=== PATIENT | male | born 1970 | race Caucasian/White ===

== ENCOUNTER 2021-04-21 12:21 | Outpatient (CLI) | payer BC ==
[~2021-04-21 12:21] MED LIST: NORCO 325 MG-51 TAB PO
[2021-04-21 13:10] VITALS: BP 133/73; PULSE 76; TEMP 98.6
[2021-04-21 13:25] VITALS: BP 121/95; PULSE 85; TEMP 98.6
[2021-04-21 13:40] VITALS: BP 135/84; PULSE 80; TEMP 98.6
[2021-04-21 13:55] VITALS: BP 134/77; PULSE 78; TEMP 98.6
[2021-04-21 14:10] VITALS: BP 137/78; PULSE 77; TEMP 98.6
[2021-04-21 14:25] VITALS: BP 138/72; PULSE 76; TEMP 98.6
== END 2021-04-21 14:45 | disposition home or self-care (01) ==
LOC: EUO 12:21
DX: U07.1 COVID-19 (principal)
CPT/HCPCS: M0245

== ENCOUNTER → 2022-08-06 | Outpatient (CLI) | payer BC | LOC: COL.RAD 12:37 | DX: H93.A3 Pulsatile tinnitus, bilateral (principal) | CPT/HCPCS: A9575 ==